=== PATIENT | male | born 1935 | race Caucasian/White ===

== ENCOUNTER → 2017-06-10 | Outpatient (CLI) | payer OTHER, MEDICARE | LOC: BHFA 09:15 | PROVIDERS: ATTEND Internal Medicine Cardiovascular Disease | DX: Z51.11 Encounter for antineoplastic chemotherapy (principal) ==

== ENCOUNTER → 2017-06-21 | Day surgery (SDC) | payer OTHER, MEDICARE | END | disposition home or self-care (01) | LOC: FIMAGING 12:26 | PROVIDERS: ATTEND Nurse Practitioner | PROC: 02HV33Z Insertion of Infusion Device into Superior Vena Cava, Percutaneous Approach (ICD-10-PCS; principal; 2017-06-21) | DX: C11.9 Malignant neoplasm of nasopharynx, unspecified (principal) | CPT/HCPCS: 36569; 77001; C1751 ==

== ENCOUNTER 2017-07-19 09:11 | Day surgery (SDC) | payer OTHER ==
[2017-07-19] MEDS ORDERED: NALOXONE HCL 0.4 MG/ML INJ IVP PRN (09:25)
[2017-07-19] MEDS ORDERED: MIDAZOLAM 2 MG/2 ML VIAL IVP PRN (09:25)
[2017-07-19] MEDS ORDERED: MEPERIDINE 25 MG/ML SYR IVP PRN (09:25)
[2017-07-19] MEDS ORDERED: FLUMAZENIL 0.5 MG/5 ML MDV IVP PRN (09:25)
[2017-07-19] MEDS ORDERED: fentaNYL 100 MCG/2 ML INJ IVP PRN (09:25)
[2017-07-19] MEDS ORDERED: NS 1,000 ML IV SCH (09:30)
[2017-07-19 09:50] VITALS: TEMP 98.2
--- NOTE | 2017-07-19 10:19 | PDGENHP ---
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 Relevant Physical Exam: oropharyngeal inflammation, soft abdomen Cardiorespiratory Assessment: RRR, nl wob
--- NOTE | 2017-07-19 10:20 | PDPROPOC ---
Sedation Plan of Care ASA Classification: ASA 2 Planned drugs: fentanyl, midazolam Mallampati Score: Class 3 Mallampati Reference Image:
[2017-07-19] MEDS ORDERED: GLUCAGON HCL 1 MG VIAL ONE (10:34)
[2017-07-19] MEDS ORDERED: GLUCAGON HCL 1 MG VIAL IV ONE (10:34)
[2017-07-19] MEDS ORDERED: LIDOCAINE 1% 300 MG/30 ML SDV ONE (10:50)
[2017-07-19] MEDS ORDERED: IOPAMIDOL (ISOVUE-300) 100 ML BTL ONE (10:51)
[2017-07-19] MEDS ORDERED: ONDANSETRON 4 MG/2 ML VIAL ONE (10:59)
--- NOTE | 2017-07-19 11:23 | PDRADPN ---
Radiology Procedure Note Date of Procedure: 07/19/17 Radiologist: Jozef Olmos Anesthesia: IV Sedation Pre-op Diagnosis: H&N cancer Post-op Diagnosis: same Indication: supplemental feed Procedure: gastrostomy Finding(s): intragastric position of 20F tube and three T-tacks. Inf/Abcess present in the surg proc area at time of surgery?: No EBL: Minimal Complications: none
[2017-07-19] MEDS ORDERED: ONDANSETRON 4 MG/2 ML VIAL IVP PRN (11:24)
[2017-07-19] MEDS ORDERED: 1/2 NS 1,000 ML IV SCH (11:30)
[2017-07-19 11:45] VITALS: PULSE 56
[2017-07-19 13:28] VITALS: BP 148/84
[2017-07-19 14:00] VITALS: RESP 15; O2SAT 99
== END 2017-07-19 14:25 | disposition home or self-care (01) ==
LOC: FIMAGING 09:11
PROVIDERS: ATTEND Internal Medicine Hematology & Oncology
PROC: 0DH63UZ Insertion of Feeding Device into Stomach, Percutaneous Approach (ICD-10-PCS; principal; 2017-07-19 11:43)
DX: R13.10 Dysphagia, unspecified (principal); C11.2 Malignant neoplasm of lateral wall of nasopharynx; N20.0 Calculus of kidney
CPT/HCPCS: 49440; 99152; 99153; C1729; J1610; J1644; J2250; J2310; J2405; J3010; Q9967

== ENCOUNTER 2017-07-20 06:57 | Emergency (ER) | payer OTHER ==
[2017-07-20 07:04] VITALS: BP 94/68; PULSE 90; RESP 18; TEMP 98.1; O2SAT 92
--- NOTE | 2017-07-20 07:47 | EDPHY ---
H & P Time Seen by Provider: 07/20/17 07:45 HPI/ROS: Chief complaint. Feeding tube problem HPI. Patient is an 82-year-old male who had a feeding tube placed yesterday secondary to oral cancer and decreased ability to eat. He awoke this morning and was wet. It appears that his feeding tube was leaking and the family is concerned. He and his 2 sisters came to the emergency department for further evaluation. Patient has no abdominal pain. No fever. No vomiting. ROS Constitutional. no fever/chills, no weakness Eyes. no problems with vision ENT. no sore throat, no nasal drainage Cardiovascular. no chest pain Respiratory. no shortness of breath, no cough Abdominal. no abdominal pain, no nausea/vomiting, no diarrhea; feeding tube leaking . no problems urinating MS. no calf pain/swelling, no neck/back pain, no joint pain Skin. no rash Lymph. no swollen glands Neuro. no headache, no dizziness, no difficulty walking or with speech Past Medical/Surgical History: Oral cancer Social History: Single, nonsmoker, no alcohol Smoking Status: Never smoked Physical Exam: General Appearance: Alert well-developed male no distress vital signs are stable Eyes: Pupils equal and round no pallor or injection. ENT, Mouth: Mucous membranes are moist. Respiratory: There are no retractions, lungs are clear to auscultation. Cardiovascular: Regular rate and rhythm. Gastrointestinal: Abdomen is soft and nontender, no masses, bowel sounds normal. Feeding tube appears to be in good position. There is no bleeding around the ostomy. No erythema. The feeding tube has been disconnected in 1 of the connections about 12 in from the insertion site into the abdomen. Neurological: Awake and alert, sensory and motor exams grossly normal. Skin: Warm and dry, no rashes. Musculoskeletal: Neck is supple nontender. Extremities symmetrical, full range of motion. Psychiatric: Patient is oriented X 3, there is no agitation. Constitutional: Initial Vital Signs Temperature (C) 36.7 C 07/20/17 07:00 Heart Rate 90 07/20/17 07:00 Respiratory Rate 18 07/20/17 07:00 Blood Pressure 94/68 L 07/20/17 07:00 O2 Sat (%) 92 07/20/17 07:00 O2 Delivery Mode Room Air Allergies/Adverse Reactions: indomethacin Allergy (Verified 07/20/17 07:00) Unknown levothyroxine Allergy (Verified 07/20/17 07:00) Unknown methylprednisolone Allergy (Verified 07/20/17 07:00) Unknown mineral oil* [From Aquaphor] Allergy (Verified 07/20/17 07:00) petrolatum,hydrophilic [From Aquaphor] Allergy (Verified 07/20/17 07:00) Home Medications: Medication Instructions Recorded CISplatin 07/18/17 Magic Mouth Wash PO DAILY 07/18/17 Medical Decision Making Procedures: Patient is clean. Feeding tube is reconnected. It is flushed and draining gastric juices. The patient his sisters are instructed in how to use an care for feeding tube. They expressed understanding and agreement ED Course/Re-evaluation: Patient remained stable Differential Diagnosis: Feeding tube disconnection. I considered displacement of feeding tube. As well as infection. Departure - Departure Disposition: Home, Routine, Self-Care Clinical Impression: Feeding tube dysfunction Qualifiers: Encounter type: initial encounter Qualified Code(s): T85.598A - Other mechanical complication of other gastrointestinal prosthetic devices, implants and grafts, initial encounter Condition: Good Instructions: How to Use and Care for Your PEG Tube (ED) Additional Instructions: Return for worsening symptoms. Follow up with your physicians as they have instructed. Referrals: LARS NASCIMENTO [Primary Care Provider] - 1 day, if not improved
== END 2017-07-20 08:13 | disposition home or self-care (01) ==
DX: T85.598A Other mechanical complication of other gastrointestinal prosthetic devices, implants and grafts, initial encounter (principal); Y73.2 Prosthetic and other implants, materials and accessory gastroenterology and urology devices associated with adverse incidents

== ENCOUNTER 2017-07-20 15:11 | Emergency (ER) | payer OTHER ==
--- NOTE | 2017-07-20 17:24 | EDPHY ---
HPI/HX/ROS/PE/MDM Narrative: CHIEF COMPLAINT: Feeding tube malfunction HISTORY OF PRESENT ILLNESS: The patient is an 82 y/o male with a history of nasal and sinus cancer arriving via EMS for a feeding tube malfunction. On Saturday, 8 days ago, he had a feeding tube placed by Dr. Olmos. This was placed in preparation for the start of radiation therapy for head and neck cancer. He has not started using the feeding tube yet. Patient was seen in the emergency department earlier for concerns about feeding tube malfunction and excessive drainage. He was discharged had the tube clamped. Patient was advised that he could remove drainage bag later today and replace it with a plug. However, when he attempted to remove the connector for the drainage bag, the plastic piece broke off and there is a piece of the blue connector insert remaining in the G-tube. He is not able to place the plug in the G-tube. Ate 14oz of Ensure and 8oz of water today. REVIEW OF SYSTEMS: Aside from elements discussed in the HPI, a comprehensive 10-point review of systems was reviewed and is negative. PAST MEDICAL HISTORY: Head and neck cancer. SOCIAL HISTORY: Family at bedside, lives in [place], [facility] VITAL SIGNS: Reviewed by me GENERAL: Well-developed, well-nourished, resting comfortably in no respiratory distress. HEENT: Benign LUNGS: Clear to auscultation bilaterally, no wheezes, rhonchi or rales. CARDIAC: Regular rate and rhythm, no rubs, murmurs or gallops. ABDOMEN: Suprapubic catheter and feeding tube in place. Soft, nontender, nondistended, bowel sounds normal. Feeding tube is disconnected from the drainage bag. Connector piece is lodged in the feeding tube. EXTREMITIES: No trauma. No edema. Range of motion is normal throughout. NEURO: Alert and oriented, grossly nonfocal. SKIN: Warm and dry, no rash. Portions of this note were transcribed by a medical surgical tech. I personally performed a history, physical exam, medical decision making, and confirmed accuracy of information the transcribed note. ED Course: The patient is an 82 y/o male with a history of nasal and sinus cancer arriving via EMS for a feeding tube malfunction. He is unable to take out the blue insert of the connector. 1746: Patient's nurse was able to take out the blue insert. Feeding tube was then closed as previously directed. Reassessed patient and discussed return precautions. Patient and his family are comfortable with this plan. MDM: Differential diagnoses for the patient's symptom complex was considered including but not limited to feeding tube malposition, mechanical difficulties with feeding tube, feeding tube clogged, abdominal pain. General Time Seen by Provider: 07/20/17 17:23 Initial Vital Signs: Initial Vital Signs Temperature (C) 36.6 C 07/20/17 15:24 Heart Rate 81 07/20/17 15:24 Respiratory Rate 18 07/20/17 15:24 Blood Pressure 106/72 07/20/17 15:24 O2 Sat (%) 94 07/20/17 15:24 O2 Delivery Mode Room Air Allergies/Adverse Reactions: indomethacin Allergy (Verified 07/20/17 15:23) Unknown levothyroxine Allergy (Verified 07/20/17 15:23) Unknown methylprednisolone Allergy (Verified 07/20/17 15:23) Unknown mineral oil* [From Aquaphor] Allergy (Verified 07/20/17 15:23) petrolatum,hydrophilic [From Aquaphor] Allergy (Verified 07/20/17 15:23) Home Medications: Medication Instructions Recorded CISplatin 07/18/17 Magic Mouth Wash PO DAILY 07/18/17 Departure - Departure Disposition: Home, Routine, Self-Care Clinical Impression: Feeding tube dysfunction Qualifiers: Encounter type: subsequent encounter Qualified Code(s): T85.598D - Other mechanical complication of other gastrointestinal prosthetic devices, implants and grafts, subsequent encounter Condition: Good Additional Instructions: Follow-up with your primary doctor within 72 hours. Return to the Emergency Department for fever, chest pain, shortness of breath, increasing pain or other worsening of condition. Referrals: LARS NASCIMENTO [Primary Care Provider] - As per Instructions Report Scribed for: Nita Mccann Report Scribed by: Alice Olmstead Date of Report: 07/20/17 Time of Report: 17:24
[2017-07-20 18:18] VITALS: BP 110/67; PULSE 75; RESP 19; TEMP 98.2; O2SAT 95
== END 2017-07-20 18:21 | disposition home or self-care (01) ==
DX: T85.598D Other mechanical complication of other gastrointestinal prosthetic devices, implants and grafts, subsequent encounter (principal); Z85.22 Personal history of malignant neoplasm of nasal cavities, middle ear, and accessory sinuses; Y73.2 Prosthetic and other implants, materials and accessory gastroenterology and urology devices associated with adverse incidents

== ENCOUNTER 2017-07-31 10:52 | Outpatient (CLI) | payer OTHER ==
[2017-07-31 14:25] VITALS: BP 116/63; PULSE 76; RESP 16; TEMP 100.4; O2SAT 93
== END 2017-07-31 14:00 | disposition home or self-care (01) ==
LOC: FOBOP 10:52
PROVIDERS: ATTEND Internal Medicine Hematology & Oncology
PROC: 30243N1 Transfusion of Nonautologous Red Blood Cells into Central Vein, Percutaneous Approach (ICD-10-PCS; principal; 2017-07-31)
DX: C30.0 Malignant neoplasm of nasal cavity (principal)
CPT/HCPCS: 36430; P9016